=== PATIENT | male | born 1975 | race Caucasian/White ===

== ENCOUNTER 2023-10-15 13:09 | Emergency (ER) | payer BC, SELFPAY ==
[2023-10-15 13:21] VITALS: BP 158/86; PULSE 73; RESP 16; TEMP 37.1; O2SAT 100
--- NOTE | 2023-10-15 13:40 | ED_ITS ---
HPI - Skin/Abscess/Foreign Bdy General Chief complaint: Skin/Abscess/Foreign Body Stated complaint: bug bite, infection Time Seen by Provider: 10/15/23 13:22 History of Present Illness HPI narrative: This is a 48-year-old male, with on testosterone supplementation, who presents to the emergency department complaining of rapidly spreading rash and redness of the right forearm for the past 2 days. Patient states he frequently works outside and is not sure if he was bitten by an insect or sustained the injury. He noted redness swelling of the right forearm. This is accompanied by streaks of red the same for her. He complains of mild fatigue but denies fevers, chills, nausea or vomiting. He also complains of upper respiratory congestion and cough for the past 3 weeks. He complains of sinus pressure, rated 5 to 6/10 that has been worsening. Related Data Allergies Allergy/AdvReac Type Severity Reaction Status Date / Time No Known Allergies Allergy Verified 10/15/23 14:04 Review of Systems Review of Systems: CONSTITUTIONAL: Denies fever, chills, or sweats. ENT: Rhinorrhea, congestion Denies sore throat, or otalgia. CARDIOVASCULAR: Denies chest pain, palpitations, or edema. RESPIRATORY: Denies cough or dyspnea. GASTROINTESTINAL: Denies abdominal pain, nausea, vomiting, or diarrhea. GENITOURINARY: Denies dysuria or hematuria. SKIN: Redness swelling of the right forearm with spreading streaks of red Denies rash or itching. MUSCULOSKELETAL: Denies back pain, joint pain, or myalgia. NEUROLOGIC: Denies headache, numbness, dizziness, or weakness. PSYCHIATRIC: Denies anxiety or depression. PMFSH Past Medical History Medical History Low testosterone Surgical History Surgical History No significant past surgical history Social History Social History Smoking status: Current some day smoker Tobacco type: cigars Alcohol intake: current Substance use: never Exam Narrative: GENERAL: Well-developed, well-nourished, and in no acute distress. HEAD: Normocephalic, atraumatic. EYES: PERRLA and EOMI. ENT: Nares with dried mucus, no rhinorrhea or epistaxis. Mucous membranes moist. Oropharynx without tonsillar hypertrophy exudate or other lesions. The TMs pearly gonzalez and nonbulging or drink. CHEST: Clear to auscultation. No respiratory distress. No wheezes rales or rhonchi HEART: Regular rate and rhythm. No murmur heard. Normal peripheral pulses. EXTREMITIES: Normal range of motion. No edema. SKIN: There is a 10 x 7 cm area erythema, induration and warmth noted over the posterior right forearm approximately 5 cm proximal to the wrist. There are streaks of red noted on the medial, ventral aspect of the right forearm extending from approximately mid forearm to the elbow. Skin otherwise warm, dry, no rash. NEURO: Alert and oriented x3. No focal deficit. Moving all 4 limbs spontaneously PSYCH: Normal mood and affect. Course Course Emergency Course: 14:53 - Exam consistent with cellulitis. Will discharge with oral antibiotics. The patient also demonstrates symptoms consistent with bacterial sinusitis. Will discharge with doxycycline and benzonatate for cough. I discussed the findings and recommendations with the patient and his spouse. Discussed return and emergency precautions including signs/symptoms of antibiotic failure. The patient voiced understanding and agreement with the plan. All questions answered to his satisfaction. Vital Signs Vital signs: Vital Signs Temperature 98.7 F 10/15/23 13:21 Pulse Rate 73 10/15/23 13:21 Respiratory Rate 16 10/15/23 13:21 Blood Pressure 158/86 H 10/15/23 13:21 Pulse Oximetry 100 10/15/23 13:21 Temperature 98.7 F 10/15/23 13:21 Pulse Rate 73 10/15/23 13:21 Respiratory Rate 16 10/15/23 13:21 Blood Pressure 158/86 H 10/15/23 13:21 Pulse Oximetry 100 10/15/23 13:21 MDM - Skin/Abscess/Foreign Bdy MDM Narrative Medical decision making narrative: Plan: IV antibiotics, oral antibiotics, primary care follow-up Differential Diagnosis Differential diagnosis: Likely cellulitis, contact dermatitis and other (Thrombophlebitis, other) Discharge Plan Discharge Clinical Impression: Thrombophlebitis arm Cellulitis Qualifiers: Site of cellulitis: extremity Site of cellulitis of extremity: upper extremity Laterality: left Qualified Code(s): L03.114 - Cellulitis of left upper limb Sinusitis Qualifiers: Sinusitis location: ethmoidal Chronicity: acute Recurrence: not specified as recurrent Qualified Code(s): J01.20 - Acute ethmoidal sinusitis, unspecified Patient Disposition: Home, Self-Care Condition: Stable Instructions: Antibiotic Form, Cellulitis (ED), Sinusitis (ED) Additional Instructions: You were seen in the emergency department. Your exam is consistent with cellulitis. I recommend antibiotics and following up with your primary care doctor. If you develop muscle strength/sensation in the arm, the arm appears blue/cold, fevers, persistent vomiting, or if you have other emergent concerns for life, limb, or eyesight, return to the emergency department. Patient Language: [place] Prescriptions: New cephalexin 500 mg tablet 500 mg PO Q6H 7 Days Qty: 28 0RF doxycycline hyclate 100 mg tablet 100 mg PO BID Qty: 14 0RF benzonatate 200 mg capsule 200 mg PO TID PRN (Reason: cough) 6 Days Qty: 18 0RF Follow-up/Referrals: PHYSICIAN,COMPUTING TUTOR [Primary Care Provider] - Padma Cabrera DO [Physician] - 2 Weeks Time of Disposition: 13:46
[2023-10-15] MEDS: ceFAZolin 2 GM/D5W 50 ML 2 GM/50 ML BAG IVPB (14:25)
== END 2023-10-15 15:04 | disposition home or self-care (01) ==
LOC: ANHED 14:35
PROVIDERS: Emergency Provider Preventive Medicine Aerospace Medicine
DX: I80.9 Phlebitis and thrombophlebitis of unspecified site (principal); L03.114 Cellulitis of left upper limb; J01.20 Acute ethmoidal sinusitis, unspecified; F17.290 Nicotine dependence, other tobacco product, uncomplicated
CPT/HCPCS: 96365; 99284; J0690

== ENCOUNTER 2025-04-24 01:49 | Day surgery (SDC) | payer BC, SELFPAY ==
[2025-04-15 10:44] VITALS: BMI 30.4
--- OUTSIDE RECORDS SUMMARY | 2025-04-24 01:53 | XMS_ITS | Encounter Summary ---
Author Organization [facility] Healthcare Address [address] [place] [address] Care Team Providers Care Procedural Nurse Name Role Phone Miscellaneous, Not In File Primary Care Provider Unavailable No, Physician Primary Care Provider [phone] No, Physician Primary Care Provider [phone] Encounter Details Date Type Department Care Team (Latest Contact Info) Description 04/04/2020 Ophth Exam Ophthalmology Monica Rivera MD [address] [place] [address] Social History Tobacco Use Types Packs/Day Years Used Date Smoking Tobacco: Some Days Cigars Smokeless Tobacco: Never Alcohol Use Standard Drinks/Week Comments Not Currently 0 (1 standard drink = 0.6 oz pur e alcohol) Sex and Gender Information Value Date Recorded Sex Assigned at Not on file Legal Sex Male 7:28 AM CDT Gender Identity Not on file Sexual Orientation Not on file documented as of this encounter Plan of Treatment Not on file documented as of this encounter Visit Diagnoses Not on filedocumented in this encounter Eye Exam Visual Acuity Right eye Left eye Near sc 20/30 20/20 VA OD somewhat limited due to ointment instillation prior to exam Tonometry (Tonopen, 9:34 AM) Right eye Left eye Pressure 19 16 Pupils Dark Light Shape React APD Right eye 4 2 Round Brisk None Left eye 4 2 Round Brisk None Extraocular Movement Right eye Left eye Full Full Appears somewhat limited in supraduction OD due to edema. No diplopia, pain with EOMs. Neuro/Psych Oriented x3: Yes Mood/Affect: Normal CN V1-3 in tact bilaterally External Exam Right eye Left eye External Multiple facial tone sions over entire right face, brow laceration repaired with in tact brow line. Periorbital edema, ecchymosis. No induration/fluctuance. Mildly TTP. Scattered abrasions Levator function 10mm OD, 16mm OS Slit Lamp Exam Right eye Left eye Lids/Lashes as above, Cardona stent in plac e medially asa above Conjunctiva/Sclera JOYCE temporally and inferiorly , no chemosis White and quiet Cornea Clear Clear Anterior Chamber Deep and quiet Deep and quiet Iris Round and reactive Round and dayana ctive Lens Clear Clear Vitreous Normal Normal Care Teams Procedural Nurse Relationship Specialty Start Date End Date Miscellaneous, Not In File PCP - General 04/04/2004/06 No, Physician PCP - General 04/07/20 04/08/20 No, Physician PCP - General 07/12/24 documented as of this encounter
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
--- OUTSIDE RECORDS SUMMARY | 2025-04-24 01:53 | XMS_ITS | Clinical Summary ---
Author Organization [facility] Address [address] [place] [phone] Phone Care Team Providers Care Software Intern Name Role Phone Provider, Unknown Primary Care Provider Unavaila ble Allergies No known active allergies Medications No known medications Active Problems No known active problems Immunizations Immunization Administration Dates Next Due Influenza Vaccine, Quadrivalent, PF 04/04/2020,1 TDAP Vaccine 04/03/2020,01/04/2019 Social History Tobacco Use Types Packs/Day Years Used Date Smoking Tobacco: Some Days Smokeless Tobacco: Former Tobacco Cessation:Ready to Q uit: Not Asked; Counseling Given: Not Answered Alcohol Use Standard Drinks/Week Comments Yes 0 (1 standard drink = 0.6 oz pur e alcohol) occasionally Sex and Gender Information Value Date Recorded Sex Assigned at Not on file Legal Sex Male 8:51 PM CDT Gender Identity Not on file Sexual Orientation Not on file Last Filed Vital Signs Vital Sign Reading Time Taken Comments Blood Pressure 120/60 11/30/2024 12:18 PM CDT Pulse 66 11/30/2024 12:18 PM CDT Temperature 36.5 C (97.7 F) 11/30/2024 12:18 PM CDT Respiratory Rate 20 11/30/2024 12:18 PM CDT Oxygen Saturation 95% 11/30/2024 12:18 PM CDT Inhaled Oxygen Concentration - - Weight 99.8 kg (220 lb) 08/09/2019 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 Height 193 cm (6' 4) 08/09/2019 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 Body Mass Index 26.78 08/09/2019 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 Plan of Treatment Health Maintenance Due Date Last Done Comments Hepatitis C Virus (HCV) Screening 1975 Hepatitis B Immunization (1 of 3 - 19+ 3-dose series) 1992 Pneumococcal Immunization (5 0+ years) (1 of 2 - PCV) 1992 Cologuard 2018 Colonoscopy 2018 Colorectal Cancer Screening 2018 Immunochemical Fecal Occult Blood 2018 Zoster Immunization (1 of 2) 2023 Influenza Immunization (#1) 2025 10/0 02/2020, 04/21/2019 SARS-COV-2 Immunization (3 - season) 2025 08/19/2020, 07/29/2020 Td Immunization Every 10 Yea rs (Adults With 1 Tdap) 04/03/2030 04/03/2020, 01/04/2019 Respiratory Syncytial Virus (RSV) Immunization (Adult) (1 - 1-dose 75+ series) 2048 DTaP/Tdap/Td Immunization Discontinued 2019, 01/04/2019 TdaP Immunization Discontinued 04/03/2020, 01/04/2019 Human Papillomavirus (HPV) Immunization Aged Out No longer eligible based on patient's age to complete this topic Meningococcal Immunization (ACWY) Aged Out No longer eligible based on patient's age to complete this topic Rotavirus Immunization Aged Out No lo nger eligible based on patient's age to complete this topic Insurance Care Teams Software Intern Relationship Specialty Start Date End Date Provider, Unknown UNKNOWN PCP - General 08/09/19
[2025-04-24 09:16] VITALS: BP 144/89; PULSE 55; RESP 18; TEMP 36.2; O2SAT 99; BMI 28.6
[2025-04-24] MEDS: LACTATED RINGERS 1,000 ML 150 ML IV CONT (09:25)
--- NOTE | 2025-04-24 10:05 | WPDANESEPPF ---
Anes - Initial Pre Proc Eval Procedure: Operation Date: 04/24/25 10:30 Proposed Procedures p Screening Colonoscopy - Yang Esquivel MD Date/Time: 04/24/25 10:05 Surgeon: Yang Esquivel MD Pre Op Diagnosis: Family history of malignant neoplasm of digestive Patient Data Age: 50 Gender: M Height: 1.93 m Weight: 106.8 kg Last Vital Signs Temp 97.1 F L 04/24/25 09:16 Pulse 55 L 04/24/25 09:16 Resp 18 04/24/25 09:16 BP 144/89 H 04/24/25 09:16 Pulse Ox 99 04/24/25 09:16 O2 Del Method Room Air 04/24/25 09:16 Allergies Allergy/AdvReac Type Severity Reaction Status Date / Time No Known Allergies Allergy Verified 04/24/25 09:15 Home Medications ?Medication ?Instructions ?Recorded ?Confirmed ?Type metformin 500 mg tablet 1,000 mg PO DAILY 10/26/23 04/15/25 History Patient hx anesthesia problems: none Family hx anesthesia problems: none Results Review: All pre-operative results and documents have been reviewed as part of the pre-operative evaluation. [facility] Past Medical History Medical History Low testosterone Surgical History Surgical History No significant past surgical history Family History Family History Other Cancer Cerebrovascular accident Diabetes mellitus Social History Social History Smoking status: Current every day smoker Tobacco type: cigars Alcohol intake: current Drinks per week: 2 Alcohol use details: seldom drinks bourbon Substance use: never Substance use type: does not use Do You Feel Safe in your Home?: Yes Lack of Transportation: No Lack of Food: Never True Current Housing: I Have Housing Concerned About Future Housing: No Difficulty Paying Gas/Electric Bills: No Difficulty Paying for Meds: No Currently Unemployed: No Education: Trade/Vocational Certificate Difficulty w/ Childcare or Family Care: No Living arrangements: with family Spiritual care concerns: No Anes - Eval Final PreProcedure Day of Procedure 04/24/25 10:05 Patient weight: normal Lungs: normal air movement Airway: Mallampati scale class II Neurological: alert and oriented Last oral intake: >/= 8 hours ASA classification: II Emergent: no Anesthetic plan: proceed Anesthesia type and monitoring: general GIVS and standard monitoring Results Review: All pre-operative results and documents have been reviewed as part of the pre-operative evaluation. Overall hyperglycemia, smoker, no cp or sob w activity. Informed Consent: The patient's anesthetic plan and its attendant risks and benefits were discussed with the patient/family/POA. Questions were solicited and answers provided to the satisfaction of the patient/family/POA.
--- NOTE | 2025-04-24 10:06 | PM.IMHP ---
H&P: HPI History of Present Illness Date/Time: 04/24/25 10:06 Chief Complaint: Screening colonoscopy Narrative: This is the patient's first colonoscopy. There are no GI symptoms and there is no family history of colorectal cancer. Review of Systems Review of Systems: All systems reviewed & are unremarkable except as noted in HPI and below PMFSH Past Medical History Medical History Low testosterone Surgical History Surgical History No significant past surgical history Family History Family History Other Cancer Cerebrovascular accident Diabetes mellitus Social History Social History Smoking status: Current every day smoker Tobacco type: cigars Alcohol intake: current Drinks per week: 2 Alcohol use details: seldom drinks bourbon Substance use: never Substance use type: does not use Do You Feel Safe in your Home?: Yes Lack of Transportation: No Lack of Food: Never True Current Housing: I Have Housing Concerned About Future Housing: No Difficulty Paying Gas/Electric Bills: No Difficulty Paying for Meds: No Currently Unemployed: No Education: Trade/Vocational Certificate Difficulty w/ Childcare or Family Care: No Living arrangements: with family Spiritual care concerns: No Meds Home Medications and Allergies Home Medications ?Medication ?Instructions ?Recorded ?Confirmed ?Type metformin 500 mg tablet 1,000 mg PO DAILY 10/26/23 04/15/25 History Allergies Allergy/AdvReac Type Severity Reaction Status Date / Time No Known Allergies Allergy Verified 04/24/25 09:15 Vital Signs Vital Signs - 24 hr 04/24/25 09:16 Temperature 97.1 F L Pulse Rate 55 L Respiratory Rate 18 Blood Pressure 144/89 H Pulse Oximetry 99 Oxygen Delivery Room Air Exam Const: General: cooperative and healthy appearing Resp: Effort & Inspection: normal respiratory effort and able to speak in complete sentences Auscultation: clear to auscultation bilaterally Cardio: Rate: regular rate Rhythm: regular rhythm GI: Inspection: normal to inspection GI Palp: No No hepatosplenomegaly present Auscultation: normal bowel sounds Rectal Exam: deferred Skin: General skin exam: normal color Psych: Appearance: grossly normal Mental Status: mental status grossly normal Assessment and Plan Assessment and plan (1) Encounter for screening colonoscopy: Code(s): Z12.11 - Encounter for screening for malignant neoplasm of colon Status: Acute Assessment and Plan: The patient is deemed a good candidate for the procedure. Consent signed. Will proceed.
--- NOTE | 2025-04-24 10:32 | S_PTH ---
PATIENT: Laith Hernández LOC: [facility] #:[id number] AGE/SX: 50/M ROOM: RE04/24/[address]: Yang Esquivel MD : 1975 BED: DIS: 04/24/2025 SPEC #: [id number] RECD: 04/24/25 11:20 STATUS: TAE REQ #: [id number] FLORINDA: 04/24/25 10:[address]: Yang Esquivel DEPT: [facility] Surgical RECD BY: Katina Reddy ENTERED: 04/24/25 11:20 SP TYPE: Surgical OTHR DR: Chava Whittaker MD Tissues: A - Colon Polypectomy Procedures: Hematoxylin and Eosin Stain Gross and Microscopic Level 4
[2025-04-24 10:33] VITALS: BP 125/80; PULSE 54; RESP 22; O2SAT 99
[2025-04-24 10:43] VITALS: BP 138/96; PULSE 60; RESP 18; O2SAT 99
[2025-04-24 10:53] VITALS: BP 134/93; PULSE 55; RESP 14; O2SAT 100
== END 2025-04-24 11:00 | disposition home or self-care (01) ==
PROVIDERS: PCP Emergency Medicine; Referring Provider Emergency Medicine; Visit Provider Internal Medicine Gastroenterology
PROC: 0DJD8ZZ Inspection of Lower Intestinal Tract, Via Natural or Artificial Opening Endoscopic (ICD-10-PCS; CPT 45378; principal; 2025-04-24 10:30)
DX: Z12.11 Encounter for screening for malignant neoplasm of colon (principal); D12.8 Benign neoplasm of rectum; R73.9 Hyperglycemia, unspecified; E29.1 Testicular hypofunction; F17.290 Nicotine dependence, other tobacco product, uncomplicated; Z79.84 Long term (current) use of oral hypoglycemic drugs; Z80.9 Family history of malignant neoplasm, unspecified
CPT/HCPCS: 45385; 88305; J2003; J2704; J7120